=== PATIENT | male | born 1950 | race Caucasian/White ===

== ENCOUNTER 2018-02-26 06:23 | Inpatient (IN) | payer BC ==
[2018-02-22 11:29] LABS: Urine WBC None Seen /hpf (0 - 3)
[2018-02-22 11:39] LABS: Basophils # (auto) 0 uL; Basophils % (auto) 0.5 % (0.0-2.0); Eosinophils # (auto) 0.2 uL; Eosinophils % (auto) 2.6 % (0.0-7.0); Lymphocytes # (auto) 1.3 uL; Lymphocytes % (auto) 14.9 % (10.0-50.0); Mean Corpuscular Hemoglobin 31.9 pg (28.0-32.0); Mean Corpuscular Hgb Conc. 34.1 g/dL (32.0-36.0); Mean Corpuscular Volume 93.7 fL (80.0-100.0); Monocytes # (auto) 0.7 uL; Monocytes % (auto) 7.5 % (0.0-12.0); Neutrophils # (auto) 6.5 uL; Neutrophils % (auto) 74.5 % (37.0-80.0); Nucleated Red Blood Cells % 0.1 %; Platelet Count (auto) 290 10^3/uL (140-450); Red Cell Distribution Width 13.7 % (11.8-14.3); White Blood Cell 8.8 10^3/uL (4.4-10.8)
[2018-02-22 11:59] LABS: INR 0.93 (0.9-1.15); Partial Thromboplastin Time 27.2 sec (23.78-33.04)
[2018-02-22 12:08] LABS: Urine Bacteria NONE SEEN /hpf (None Seen); Urine Blood Negative /uL (Negative); Urine Specific Gravity 1.009 (1.001-1.035)
[2018-02-22 12:37] LABS: Potassium 4.5 mmol/L (3.5-5.1)
[2018-02-22 12:49] LABS: Albumin 3.8 g/dL (3.4-5.0); BUN/Creatinine Ratio 12.5; Bilirubin, Total 0.8 mg/dL (0.2-1.0); Calcium 8.9 mg/dL (8.5-10.1); Total Protein 7.3 g/dL (6.4-8.2)
[~2018-02-26] VITALS: Ht 188 cm; Wt 99.7 kg
[~2018-02-26 06:23] MED LIST: ALBUAER3 IN
[2018-02-26] MEDS ORDERED: ceFAZolin 1GM/50ML 100 ML IV ONE (06:34)
[2018-02-26] MEDS ORDERED: LIDOCAINE W/ EPINEPHRINE 2% INJ 20ML VIAL ONE (07:23)
[2018-02-26] MEDS ORDERED: BUPIVACAINE HCL 50 ML ONE (07:24)
[2018-02-26] MEDS ORDERED: MIDAZOLAM HCL 1MG/1ML-2 ML VIAL ONE ×4 (07:28→11:15)
[2018-02-26] MEDS ORDERED: TETRACAINE 1% INJ 2 ML VIAL IJ ONE (07:29)
[2018-02-26] MEDS ORDERED: MORPHINE SULF(PF) 0.5MG/ML 10ML VIAL ONE (07:30)
[2018-02-26] MEDS ORDERED: METOCLOPRAMIDE HCL 5MG/ml INJ 2ml VIAL ONE (07:58)
[2018-02-26] MEDS ORDERED: STERILE WATER 10 ML ONE ×3 (07:58→10:23)
[2018-02-26] MEDS ORDERED: ePHEDrine SULFATE 50 MG/ML AMP ONE ×3 (07:58→13:05)
[2018-02-26] MEDS ORDERED: diphenhdrAMINE HCL 50 MG/1 ML VL ONE (07:58)
[2018-02-26] MEDS ORDERED: LIDOCAINE 1% INJ PF 5ML AMP ONE ×2 (07:59→09:29)
[2018-02-26] MEDS ORDERED: PROPOFOL 10 MG/ML 20 ML IV ONE ×4 (07:59→10:21)
[2018-02-26] MEDS ORDERED: PHENYLEPHRINE HCL 10 MG/ML VL ONE (08:13)
[2018-02-26] MEDS ORDERED: NALOXONE HCL 0.4 MG/ML VIAL IV PRN ×2 (08:15)
[2018-02-26] MEDS ORDERED: KETOROLAC TROMETH 30 MG/ML 1ML VIAL IV PRN (08:15)
[2018-02-26] MEDS ORDERED: ONDANSETRON HCL 4 MG/2 ML VIAL IV ONE (08:15)
[2018-02-26] MEDS ORDERED: ONDANSETRON HCL 4 MG/2 ML VIAL IV PRN ×2 (08:15→12:15)
[2018-02-26] MEDS ORDERED: diphenhdrAMINE HCL 50 MG/1 ML VL IV PRN (08:15)
[2018-02-26] MEDS ORDERED: HYDROmorphone HCL 2 MG/ML VL IV PRN (08:15)
[2018-02-26] MEDS: LACTATED RINGER'S 1,000 ML IV SCH (12:01)
[2018-02-26] MEDS ORDERED: ACETAMINOPHEN 325 MG TAB PO PRN (12:15)
[2018-02-26] MEDS ORDERED: TEMAZEPAM 15 MG CAP PO PRN (12:15)
[2018-02-26] MEDS: ceFAZolin 1GM/50ML 50 ML IV SCH ×2 (12:15→20:18)
[2018-02-26] MEDS: ePHEDrine SULFATE 50 MG/ML AMP IV PRN ×5 (13:12→13:56)
[2018-02-26] MEDS: SODIUM CHLOR 0.9% PF (SALINE LOCK) 10ML VIAL/SYR IV SCH ×2 (14:00→21:33)
[2018-02-26 17:00] VITALS: BP 129/74
[2018-02-26] MEDS: DOCUSATE SOD 100 MG CAP PO SCH (21:33)
[2018-02-26] MEDS: oxyCODONE ER 10 MG TAB PO SCH (21:34)
[2018-02-26 22:00] VITALS: BP 105/70
[2018-02-27] MEDS: HYDROcodone-ACET 10/325MG TAB PO PRN ×2 (00:37→15:45)
[2018-02-27] MEDS: ceFAZolin 1GM/50ML 50 ML IV SCH ×2 (02:08→08:09)
[2018-02-27] MEDS: HYDROmorphone HCL 2 MG/ML VL IV PRN ×7 (02:25→20:44)
[2018-02-27] MEDS: SODIUM CHLOR 0.9% PF (SALINE LOCK) 10ML VIAL/SYR IV SCH ×3 (05:18→22:53)
[2018-02-27 05:30] VITALS: BP 101/58
[2018-02-27 06:20] LABS: Hematocrit 32.9 % (41.0-53.0); Hemoglobin 11.4 g/dL (13.5-17.5)
[2018-02-27] MEDS: LACTATED RINGER'S 1,000 ML IV SCH (08:39)
[2018-02-27 09:00] VITALS: BP 108/58
[2018-02-27] MEDS: DOCUSATE SOD 100 MG CAP PO SCH ×2 (10:08→22:53)
[2018-02-27] MEDS: ENOXAPARIN SOD 40 MG/0.4 ML SYRINGE SC SCH (10:09)
[2018-02-27] MEDS: oxyCODONE ER 10 MG TAB PO SCH ×2 (10:09→22:53)
[2018-02-27 13:00] VITALS: BP 127/71
[2018-02-27 17:00] VITALS: BP 126/70
[2018-02-27 22:00] VITALS: BP 111/58
[2018-02-28] MEDS: HYDROmorphone HCL 2 MG/ML VL IV PRN ×5 (00:19→21:00)
[2018-02-28] MEDS: LACTATED RINGER'S 1,000 ML IV SCH (04:01)
[2018-02-28] MEDS: SODIUM CHLOR 0.9% PF (SALINE LOCK) 10ML VIAL/SYR IV SCH ×3 (05:26→21:57)
[2018-02-28 05:53] LABS: Hematocrit 31.8 % (41.0-53.0); Hemoglobin 10.9 g/dL (13.5-17.5)
[2018-02-28 05:59] VITALS: BP 119/76
[2018-02-28 06:11] LABS: Calcium 8.1 mg/dL (8.5-10.1); Potassium 4.8 mmol/L (3.5-5.1)
[2018-02-28 07:28] VITALS: BP 124/64
[2018-02-28] MEDS: ENOXAPARIN SOD 40 MG/0.4 ML SYRINGE SC SCH (09:50)
[2018-02-28] MEDS: DOCUSATE SOD 100 MG CAP PO SCH ×2 (09:50→21:59)
[2018-02-28] MEDS: oxyCODONE ER 10 MG TAB PO SCH ×2 (09:51→21:59)
[2018-02-28 11:26] VITALS: BP 123/72
[2018-02-28 20:00] VITALS: BP 123/64
[2018-02-28 21:22] VITALS: BP 123/64
[2018-03-01] MEDS: LACTATED RINGER'S 1,000 ML IV SCH ×2 (00:01→20:16)
[2018-03-01 04:29] VITALS: BP 136/78
[2018-03-01 05:22] LABS: Hemoglobin 9.9 g/dL (13.5-17.5)
[2018-03-01] MEDS: SODIUM CHLOR 0.9% PF (SALINE LOCK) 10ML VIAL/SYR IV SCH ×3 (06:00→21:43)
[2018-03-01] MEDS: HYDROmorphone HCL 2 MG/ML VL IV PRN ×4 (06:30→20:36)
[2018-03-01 08:00] VITALS: BP 120/58
[2018-03-01] MEDS: ENOXAPARIN SOD 40 MG/0.4 ML SYRINGE SC SCH (10:18)
[2018-03-01] MEDS: DOCUSATE SOD 100 MG CAP PO SCH ×2 (10:18→21:43)
[2018-03-01] MEDS: oxyCODONE ER 10 MG TAB PO SCH ×2 (10:18→21:44)
[2018-03-01 12:00] VITALS: BP 137/67
[2018-03-01] MEDS ORDERED: HYDROcodone-ACET 10/325MG TAB PO PRN (12:15)
[2018-03-01 16:00] VITALS: BP 105/57
[2018-03-01 20:00] VITALS: BP 96/51
[2018-03-01 22:00] VITALS: BP 96/51
[2018-03-02] MEDS: HYDROmorphone HCL 2 MG/ML VL IV PRN ×6 (05:25→20:42)
[2018-03-02 05:38] VITALS: BP 100/58
[2018-03-02] MEDS: SODIUM CHLOR 0.9% PF (SALINE LOCK) 10ML VIAL/SYR IV SCH ×3 (06:17→21:27)
[2018-03-02 06:59] LABS: Hematocrit 26.6 % (41.0-53.0); Hemoglobin 9.2 g/dL (13.5-17.5)
[2018-03-02 09:00] VITALS: BP 124/62
[2018-03-02] MEDS: oxyCODONE ER 10 MG TAB PO SCH ×3 (10:48→21:27)
[2018-03-02] MEDS: DOCUSATE SOD 100 MG CAP PO SCH ×2 (10:48→21:27)
[2018-03-02] MEDS: ENOXAPARIN SOD 40 MG/0.4 ML SYRINGE SC SCH (10:49)
[2018-03-02 13:00] VITALS: BP 122/59
[2018-03-02] MEDS: ceFAZolin 1GM/50ML 50 ML IV SCH ×3 (13:03→21:27)
[2018-03-02] MEDS: LACTATED RINGER'S 1,000 ML IV SCH (16:01)
[2018-03-02 16:32] VITALS: BP 119/65
[2018-03-02 21:41] VITALS: BP 147/72
[2018-03-03] MEDS: HYDROmorphone HCL 2 MG/ML VL IV PRN ×6 (04:02→22:15)
[2018-03-03 05:00] VITALS: BP 118/64
[2018-03-03 05:00] LABS: Basophils # (auto) 0.1 uL; Basophils % (auto) 0.6 % (0.0-2.0); Eosinophils # (auto) 0.3 uL; Eosinophils % (auto) 3.7 % (0.0-7.0); Hematocrit 25.9 % (41.0-53.0); Hemoglobin 9.1 g/dL (13.5-17.5); Lymphocytes % (auto) 11.6 % (10.0-50.0); Mean Corpuscular Hemoglobin 32.4 pg (28.0-32.0); Mean Corpuscular Hgb Conc. 35.1 g/dL (32.0-36.0); Mean Corpuscular Volume 92.2 fL (80.0-100.0); Neutrophils % (auto) 72.1 % (37.0-80.0); Platelet Count (auto) 318 10^3/uL (140-450); Red Blood Cells 2.81 10^6/uL (4.5-5.90); Red Cell Distribution Width 12.8 % (11.8-14.3); White Blood Cell 8.4 10^3/uL (4.4-10.8)
[2018-03-03] MEDS: ceFAZolin 1GM/50ML 50 ML IV SCH ×3 (06:15→22:14)
[2018-03-03] MEDS: SODIUM CHLOR 0.9% PF (SALINE LOCK) 10ML VIAL/SYR IV SCH ×3 (06:15→22:14)
[2018-03-03 09:00] VITALS: BP 115/61
[2018-03-03] MEDS: oxyCODONE ER 10 MG TAB PO SCH ×2 (10:02→23:12)
[2018-03-03] MEDS: DOCUSATE SOD 100 MG CAP PO SCH ×2 (10:02→22:14)
[2018-03-03] MEDS: ENOXAPARIN SOD 40 MG/0.4 ML SYRINGE SC SCH (10:03)
[2018-03-03] MEDS: LACTATED RINGER'S 1,000 ML IV SCH (12:01)
[2018-03-03 13:00] VITALS: BP 133/65
[2018-03-03 17:00] VITALS: BP 120/64
[2018-03-03 20:00] VITALS: BP 115/80
[2018-03-03 22:00] VITALS: BP 115/80
[2018-03-04 04:58] VITALS: BP 114/55
[2018-03-04] MEDS: ceFAZolin 1GM/50ML 50 ML IV SCH ×3 (05:26→22:21)
[2018-03-04] MEDS: SODIUM CHLOR 0.9% PF (SALINE LOCK) 10ML VIAL/SYR IV SCH ×3 (05:27→22:21)
[2018-03-04] MEDS: HYDROmorphone HCL 2 MG/ML VL IV PRN ×3 (05:38→11:45)
[2018-03-04 05:48] LABS: Basophils # (auto) 0.1 uL; Basophils % (auto) 0.6 % (0.0-2.0); Eosinophils # (auto) 0.4 uL; Eosinophils % (auto) 4.4 % (0.0-7.0); Hematocrit 25.7 % (41.0-53.0); Hemoglobin 8.9 g/dL (13.5-17.5); Lymphocytes # (auto) 0.9 uL; Lymphocytes % (auto) 10.5 % (10.0-50.0); Mean Corpuscular Hemoglobin 31.7 pg (28.0-32.0); Mean Corpuscular Hgb Conc. 34.6 g/dL (32.0-36.0); Mean Corpuscular Volume 91.5 fL (80.0-100.0); Monocytes % (auto) 11.8 % (0.0-12.0); Neutrophils # (auto) 6.2 uL; Neutrophils % (auto) 72.7 % (37.0-80.0); Platelet Count (auto) 345 10^3/uL (140-450); Red Blood Cells 2.81 10^6/uL (4.5-5.90); Red Cell Distribution Width 12.8 % (11.8-14.3); White Blood Cell 8.6 10^3/uL (4.4-10.8)
[2018-03-04 09:00] VITALS: BP 109/59
[2018-03-04] MEDS: oxyCODONE ER 10 MG TAB PO SCH ×2 (10:05→22:22)
[2018-03-04] MEDS: DOCUSATE SOD 100 MG CAP PO SCH ×2 (10:05→22:22)
[2018-03-04] MEDS: ENOXAPARIN SOD 40 MG/0.4 ML SYRINGE SC SCH (10:08)
[2018-03-04 13:00] VITALS: BP 102/55
[2018-03-04] MEDS ORDERED: HYDROmorphone HCL 2 MG/ML VL IV PRN (13:00)
[2018-03-04] MEDS ORDERED: HYDROcodone-ACET 10/325MG TAB PO PRN (13:00)
[2018-03-04 17:00] VITALS: BP 106/62
[2018-03-04 21:45] VITALS: BP 123/67
[2018-03-05] MEDS: LACTATED RINGER'S 1,000 ML IV SCH ×2 (04:01→23:30)
[2018-03-05 05:03] VITALS: BP 123/60
[2018-03-05] MEDS: SODIUM CHLOR 0.9% PF (SALINE LOCK) 10ML VIAL/SYR IV SCH ×3 (05:28→21:23)
[2018-03-05] MEDS: ceFAZolin 1GM/50ML 50 ML IV SCH ×3 (05:28→21:23)
[2018-03-05 05:36] LABS: Hematocrit 26.8 % (41.0-53.0); Hemoglobin 9.5 g/dL (13.5-17.5)
[2018-03-05 05:45] LABS: Potassium 4.1 mmol/L (3.5-5.1)
[2018-03-05 05:47] LABS: BUN/Creatinine Ratio 19.7
[2018-03-05 08:40] VITALS: BP 127/69
[2018-03-05] MEDS: DOCUSATE SOD 100 MG CAP PO SCH ×2 (09:44→21:23)
[2018-03-05] MEDS: ENOXAPARIN SOD 40 MG/0.4 ML SYRINGE SC SCH (09:45)
[2018-03-05] MEDS: oxyCODONE ER 10 MG TAB PO SCH ×2 (09:45→21:23)
[2018-03-05] MEDS ORDERED: LEVO500T21 PO (10:57)
[2018-03-05] MEDS ORDERED: RIVA10TA PO (10:57)
[2018-03-05 12:32] VITALS: BP 123/67
[2018-03-05 17:15] VITALS: BP 121/68
[2018-03-05 22:00] VITALS: BP 128/70
[2018-03-06 05:00] VITALS: BP 133/71
[2018-03-06] MEDS: SODIUM CHLOR 0.9% PF (SALINE LOCK) 10ML VIAL/SYR IV SCH ×2 (06:04→13:55)
[2018-03-06] MEDS: ceFAZolin 1GM/50ML 50 ML IV SCH ×2 (06:05→13:55)
[2018-03-06 08:39] VITALS: BP 134/72
[2018-03-06] MEDS: oxyCODONE ER 10 MG TAB PO SCH (10:00)
[2018-03-06] MEDS: ENOXAPARIN SOD 40 MG/0.4 ML SYRINGE SC SCH (10:01)
[2018-03-06] MEDS: DOCUSATE SOD 100 MG CAP PO SCH (10:01)
[2018-03-06 10:40] VITALS: BP 125/76
[2018-03-06 11:50] VITALS: BP 121/67
[2018-03-06 12:34] VITALS: BP 121/67
== END 2018-03-06 16:15 | disposition home or self-care (01) | DRG 470 ==
LOC: SUR 06:23 → WEST WING 06:24
PROVIDERS: ADMIT Orthopaedic Surgery; ATTEND Internal Medicine
PROC: 0MBN0ZZ Excision of Right Knee Bursa and Ligament, Open Approach (ICD-10-PCS; 2018-02-26)
PROC: 0KNQ0ZZ Release Right Upper Leg Muscle, Open Approach (ICD-10-PCS; 2018-02-26)
PROC: 0SRC0J9 Replacement of Right Knee Joint with Synthetic Substitute, Cemented, Open Approach (ICD-10-PCS; principal; 2018-02-26 07:29)
DX: M17.11 Unilateral primary osteoarthritis, right knee (principal); M70.41 Prepatellar bursitis, right knee; M21.061 Valgus deformity, not elsewhere classified, right knee; J44.9 Chronic obstructive pulmonary disease, unspecified; M24.561 Contracture, right knee; G47.33 Obstructive sleep apnea (adult) (pediatric); Z82.5 Family history of asthma and other chronic lower respiratory diseases; Z84.89 Family history of other specified conditions; Y93.89 Activity, other specified
CPT/HCPCS: 36415; 73562; 80048; 80053; 81001; 85014; 85018; 85025; 85610; 85730; 86850; 86900; 86901; 87040; 93971; 97110; 97116; 97163; 97530; G0378; J0690; J2250; J2704; J3490

== ENCOUNTER 2018-05-08 15:14 | Inpatient (IN) | payer BC ==
[~2018-05-08] VITALS: Ht 188 cm; Wt 89.9 kg
[~2018-05-08 15:14] MED LIST changes: +LEVO500T21 PO; +RIVA10TA PO
[2018-05-08] MEDS ORDERED: SODIUM CHLORIDE 0.9% 1,000 ML IV ONE (17:03)
[2018-05-08 17:07] LABS: Basophils # (auto) 0 uL; Basophils % (auto) 0.4 % (0.0-2.0); Eosinophils # (auto) 0.1 uL; Eosinophils % (auto) 0.9 % (0.0-7.0); Hematocrit 41.4 % (41.0-53.0); Hemoglobin 13.8 g/dL (13.5-17.5); Lymphocytes # (auto) 0.9 uL; Mean Corpuscular Hemoglobin 29.9 pg (28.0-32.0); Mean Corpuscular Hgb Conc. 33.2 g/dL (32.0-36.0); Monocytes # (auto) 0.6 uL; Monocytes % (auto) 7.2 % (0.0-12.0); Neutrophils # (auto) 7.2 uL; Neutrophils % (auto) 81.5 % (37.0-80.0); Platelet Count (auto) 272 10^3/uL (140-450); Red Blood Cells 4.61 10^6/uL (4.5-5.90); Red Cell Distribution Width 14.5 % (11.8-14.3); White Blood Cell 8.8 10^3/uL (4.4-10.8)
[2018-05-08 17:21] LABS: Albumin 3.5 g/dL (3.4-5.0); Anion Gap 7 (5-15); Blood Urea Nitrogen 11 mg/dL (7-18); Calcium 8.3 mg/dL (8.5-10.1); Carbon Dioxide 23 mmol/L (21-32); Chloride 110 mmol/L (98-107); Glucose 91 mg/dL (74-106); Potassium 4.4 mmol/L (3.5-5.1); Sodium 140 mmol/L (136-145)
[2018-05-08 17:34] LABS: Alanine Aminotransferase 15 U/L (16-61); Alkaline Phosphatase 71 U/L (45-117); Aspartate Aminotransferase 11 U/L (15-37); BUN/Creatinine Ratio 12.6; Bilirubin, Total 0.5 mg/dL (0.2-1.0); GFR African American > 60 mL/min; GFR Non-African American > 60 mL/min; Magnesium 2.2 mg/dL (1.6-2.6); Total Protein 6.3 g/dL (6.4-8.2)
[2018-05-08 17:36] LABS: INR 0.93 (0.9-1.15); Partial Thromboplastin Time 25.5 sec (23.78-33.04)
[2018-05-08] MEDS ORDERED: cefTRIAXone 1GM/50ML D5W 50 ML IV ONE (18:00)
[2018-05-08] MEDS ORDERED: NITROGLYCERIN 0.4 MG SL TAB SL PRN (18:45)
[2018-05-08] MEDS ORDERED: ACETAMINOPHEN 500 MG TAB PO PRN (18:45)
[2018-05-08] MEDS ORDERED: MORPHINE SULFATE 4 MG/ML SYR/VIAL IV PRN (18:45)
[2018-05-08] MEDS ORDERED: PROMETHAZINE HCL 25 MG/ML 1ML IV PRN (18:45)
[2018-05-08] MEDS ORDERED: LORazepam 0.5 MG TAB PO PRN (18:45)
[2018-05-08] MEDS ORDERED: TEMAZEPAM 15 MG CAP PO PRN (18:45)
[2018-05-08] MEDS: SODIUM CHLORIDE 0.9% 1,000 ML IV SCH (19:00)
[2018-05-08 21:10] VITALS: BP 140/79
--- NOTE | 2018-05-08 21:10 | NUR ---
TELE ADMIT FROM ER RECEIVED PATIENT VIA GURNEY TO ROOM 217A. PATIENT IS A/O X4, AT BEDSIDE. NO S/S OF DISTRESS OR SOB. PATIENT DENIES PAIN AT THIS TIME. STATES "IT ONLY HURTS WHEN I MOVE IT. RIGHT NOW ITS FINE SINCE I AM NOT MOVING IT". RIGHT KNEE IS HOT TO TOUCH AND EDEMATOUS. PATIENT SKIN IS INTACT. PATIENT HAS IMMOBILIZER ON RIGHT LEG. INFORMED PATIENT IS NPO AFTER MIDNIGHT, ORDERS PENDING FOR POSSIBLE SURGICAL PROCEDURE OF RIGHT KNEE, AND UPDATED PATIENT ON POC, VERBALIZED UNDERSTANDING. BED LOCKED IN LOW POSITION, CALL LIGHT WITHIN REACH, WILL CONTINUE TO MONITOR PATIENT Q1HR AND PRN.
[2018-05-08 22:45] VITALS: BP 140/79
--- NOTE | 2018-05-08 22:50 | NUR ---
IV REMOVAL/INSERTION REMOVED 22G FROM R HAND, CATHETER INTACT, PATIENT TOLERATED WELL. INSERTED 20G TO R FOREARM AFTER 1 ATTEMPT. PATIENT TOLERATED WELL.
[2018-05-09] VITALS (7 sets, daily range): BP systolic 128–154; BP diastolic 74–97
[2018-05-09] MEDS: SODIUM CHLORIDE 0.9% 1,000 ML IV SCH ×2 (05:46→14:32)
--- NOTE | 2018-05-09 07:00 | NUR ---
Opening Shift Note Assumed care of patient, awake and alert. No S/S of distress/SOB or pain. Instructed on POC and to call for assist PRN, will continue to monitor for changes Q1hr and PRN.
--- NOTE | 2018-05-09 09:28 | NUR ---
[facility] NOTIFIED THAT THE PATIENT REFUSES TO GO DOWN STAIRS UNTIL HIS COMES TO THE BEDSIDE. I TOLD WILLA THAT THE PATIENT'S IS COMING FROM [place] AND WONT BE HERE UNTIL ABOUT 11AM
[2018-05-09] MEDS: PANTOPRAZOLE 40 MG TAB PO SCH (10:00)
--- NOTE | 2018-05-09 10:38 | NUR ---
[facility] CALLED AND I NOTIFIED THEM THAT THE PATIENT'S IS STILL NOT HERE AT BEDSIDE. I WAS INSTRUCTED TO CALL [facility] ONCE THE GETS THERE. I WILL NOTIFY THEM WHEN SHE ARRIVES.
--- NOTE | 2018-05-09 11:05 | NUR ---
ARRIVED. [facility] NOTIFIED.
--- NOTE | 2018-05-09 13:06 | NUR ---
PATIENT OFF FLOOR TO OR FOR PROCEDURE. PATIENT IS STABLE FOR TRANSFER AND VS ARE WNL. REPORT GIVEN TO WILLA.
[2018-05-09] MEDS ORDERED: ceFAZolin 1GM/50ML 50 ML IV ONE (13:19)
[2018-05-09] MEDS ORDERED: SUCCINYLCHOLINE CHLORIDE 20 MG/ML 10ML VIAL IV ONE (13:33)
[2018-05-09] MEDS ORDERED: LIDOCAINE 1% INJ PF 5ML AMP ONE (13:33)
[2018-05-09] MEDS ORDERED: MIDAZOLAM HCL 1MG/1ML-2 ML VIAL ONE (13:42)
[2018-05-09] MEDS ORDERED: METOCLOPRAMIDE HCL 5MG/ml INJ 2ml VIAL ONE (13:42)
[2018-05-09] MEDS ORDERED: PROPOFOL 10 MG/ML 20 ML IV ONE (13:44)
[2018-05-09] MEDS ORDERED: ROCURONIUM 10MG/ML 10ML VIAL IV ONE (13:56)
[2018-05-09] MEDS ORDERED: fentaNYL CITRATE 100 MCG/2 ML VL ONE (13:56)
[2018-05-09] MEDS ORDERED: SODIUM CHLORIDE LOCK 10 ML ONE (14:14)
[2018-05-09] MEDS ORDERED: ePHEDrine SULFATE 50 MG/ML AMP ONE (14:14)
[2018-05-09] MEDS ORDERED: HYDROmorphone HCL 2 MG/ML VL IV PRN (14:15)
[2018-05-09] MEDS ORDERED: ONDANSETRON HCL 4 MG/2 ML VIAL IV ONE (14:15)
[2018-05-09] MEDS ORDERED: NALOXONE HCL 0.4 MG/ML VIAL IV PRN (14:15)
[2018-05-09] MEDS ORDERED: KETOROLAC TROMETH 30 MG/ML 1ML VIAL ONE (15:01)
[2018-05-09] MEDS: HYDROmorphone HCL 2 MG/ML VL IV PRN ×2 (15:52→16:02)
--- NOTE | 2018-05-09 16:20 | NUR ---
REPORT RECEIVED FROM RECOVERY. THE PROCEDURE WENT WELL. NO COMPLICATIONS NOTED AND VS ARE WNL. PATIENT WILL RETURN TO ROOM SOON.
--- NOTE | 2018-05-09 16:40 | NUR ---
PATIENT BACK TO ROOM. PAIN REPORTED 8/10 TO THE RIGHT KNEE. PAIN MANAGEMENT OPTIONS DISCUSSED WITH THE PATIENT. RIGHT LEG IS IN BRACE. RIGHT FOOT CMST IS INTACT.
[2018-05-09] MEDS: MORPHINE SULFATE 4 MG/ML SYR/VIAL IV PRN ×2 (17:05→22:10)
[2018-05-09] MEDS: HYDROcodone-ACET 5/325MG TAB PO PRN (18:52)
[2018-05-09] MEDS ORDERED: ALBUTEROL SULF 2.5 MG/0.5ML(0.5%) NEB SOLN NEB PRN (19:30)
--- NOTE | 2018-05-09 19:45 | NUR ---
OPENING SHIFT NOTE RECEIVED REPORT FROM DAYSHIFT RN. PATIENT RESTING COMFORTABLY IN BED WITH AT BEDSIDE. NO S/S OF DISTRESS OR SOB. PATIENT STATES HE FEELS GOOD WITH NO PAIN AT THIS TIME. KNEE IS IN BRACE, PATIENT TOLERATING WELL. PT UPDATED ON POC, VERBALIZED UNDERSTANDING. BED LOCKED IN LOW POSITION, CALL LIGHT WITHIN REACH. WILL CONTINUE TO MONITOR PT Q1HR AND PRN.
[2018-05-09] MEDS: ceFAZolin 1GM/50ML 50 ML IV SCH (21:31)
[2018-05-10] MEDS: SODIUM CHLORIDE 0.9% 1,000 ML IV SCH (02:25)
--- NOTE | 2018-05-10 02:32 | NUR ---
Respiratory note: AT BEDSIDE TO ASSESS PT FOR PRN TX. PT ON RA POX 97%, HR 88, BS ARE CLEAR T/O, TX NOT INDICATED AT THIS TIME, PT AWARE HE CAN HAVE ME PAGED AT ANY TIME HE EXPERIENCES ANY DIFFICULTY BREATHING.
[2018-05-10 05:49] VITALS: BP 155/83
[2018-05-10] MEDS: ceFAZolin 1GM/50ML 50 ML IV SCH ×3 (06:13→21:37)
[2018-05-10] MEDS: HYDROcodone-ACET 5/325MG TAB PO PRN ×3 (06:20→18:40)
[2018-05-10 06:34] LABS: Basophils # (auto) 0 uL; Basophils % (auto) 0.4 % (0.0-2.0); Eosinophils # (auto) 0.2 uL; Eosinophils % (auto) 1.9 % (0.0-7.0); Hematocrit 37.2 % (41.0-53.0); Hemoglobin 12.7 g/dL (13.5-17.5); Lymphocytes % (auto) 11.4 % (10.0-50.0); Mean Corpuscular Hemoglobin 30.6 pg (28.0-32.0); Mean Corpuscular Hgb Conc. 34.1 g/dL (32.0-36.0); Mean Corpuscular Volume 89.8 fL (80.0-100.0); Monocytes # (auto) 0.7 uL; Monocytes % (auto) 7.9 % (0.0-12.0); Neutrophils # (auto) 6.8 uL; Neutrophils % (auto) 78.4 % (37.0-80.0); Platelet Count (auto) 231 10^3/uL (140-450); Red Blood Cells 4.15 10^6/uL (4.5-5.90); Red Cell Distribution Width 14.2 % (11.8-14.3); White Blood Cell 8.7 10^3/uL (4.4-10.8)
[2018-05-10 06:45] LABS: Chloride 110 mmol/L (98-107); Glucose 91 mg/dL (74-106); Potassium 4.1 mmol/L (3.5-5.1); Sodium 139 mmol/L (136-145)
[2018-05-10 06:54] LABS: Anion Gap 7 (5-15); BUN/Creatinine Ratio 12.7; Blood Urea Nitrogen 9 mg/dL (7-18); Carbon Dioxide 22 mmol/L (21-32); GFR African American > 60 mL/min; GFR Non-African American > 60 mL/min
--- NOTE | 2018-05-10 07:30 | NUR ---
Opening Shift Note Assumed care of patient, awake and alert. No S/S of distress/SOB. Pain reported to right knee. Pain management options discussed with patient. Instructed on POC and to call for assist PRN, will continue to monitor for changes Q1hr and PRN.
[2018-05-10 08:00] VITALS: BP 137/71
[2018-05-10 09:29] VITALS: BP 137/71
--- NOTE | 2018-05-10 10:00 | NUR ---
PHYSICAL THERAPY WALKING WITH PATIENT.
[2018-05-10] MEDS: PANTOPRAZOLE 40 MG TAB PO SCH (10:30)
--- NOTE | 2018-05-10 11:51 | NUR ---
DR. CORDOVA CALLED PRE-OP AND SPOKE WITH YAHIR TO SEE IF DR. CORDOVA WAS DOWN THERE. HE WAS CURRENTLY IN SURGERY. I PASSED ON THE MESSAGE THAT DR. PATINO WANTED TO KNOW IF DR. CORDOVA WAS PLANNING ON PLACING A BRACE TO THE PATIENT'S RIGHT KNEE. I WAS TOLD THAT SHE WOULD ASK DR. CORDOVA WHEN HE GETS OUT OF SURGERY AND WILL CALL ME BACK.
--- NOTE | 2018-05-10 12:08 | NUR ---
patient reports feeling a sore spot to the buttock after using the restroom. upon assessing the skin is found to be broken down. will initiate wound protocols.
--- NOTE | 2018-05-10 12:15 | NUR ---
WOUND CARE NOTE: IN TO SEE PATIENT AT THIS TIME FOR WOUND TO SACRUM/BUTTOCKS. PATIENT ADMITTED TO [facility] WITH DIAGNOSIS OF RIGHT PATELLA FRACTURE. HE HAS CURRENT MORAIMA SCORE OF 18. PATIENT IS AMBULATORY WITH ASSISTANCE BY STAFF POST-OPERATIVELY. BEDSIDE NURSE HAS PHOTOGRAPHED WOUND FOR REFERENCE. PATIENT NOTED PAIN AND BLEEDING UPON WIPING AFTER USING THE BATHROOM. BEDSIDE NURSE NOTED TWO SMALL OPEN SKIN TEARS X 2. WOUNDS ARE PARTIAL THICKNESS. WOUNDS APPEAR SKIN TEARS. BEDSIDE NURSE APPLIED ZGUARD AND OPTIFOAM GENTLE DRESSING TO WOUND. PATIENT EDUCATED IN WOUND CARE. PATIENT VERBALIZED UNDERSTANDING. RECOMMEND: BID/PRN APPLICATION WITH ZGUARD, OPTIFOAM GENTLE DRESSING TO OPEN SACRAL SKIN TEARS, DIETARY CONSULT, CONTINUED MONITORING BY WOUND CARE TEAM. Addendum: 05/10/18 at 1842 by Marissa Negro RN Amended: Links added.
--- NOTE | 2018-05-10 12:30 | NUR ---
wound care rounded on patient and inspected the wound. obtained dressing instructions from Rachel mosquera wound care nurse. pictures of wound taken and dressing applied.
[2018-05-10 13:00] VITALS: BP 156/85
[2018-05-10 17:00] VITALS: BP 140/84
--- NOTE | 2018-05-10 18:34 | NUR ---
assessment Patient is a 67 year old male who is alert and oriented. Patients cognitive abilities are intact. Prior to admission patient lived home with family and functioned independently. Patient informed me he is able to care for his own ADLs. Per patient he will return home to his prior living arrangements post discharge and family will transport him home. Patient informed me he has a cane and fww for home use. Patient informed me Dr Easton did a total knee replacement on 02/26/18. Patient informed me he was doing physical therapy and during his session his patella fractured on 05/07/18. Patient has been up with PT. Patients post discharge needs to be determined prior to discharge. I informed patient he has a right to speak to a marriage and family social worker regarding all care. I informed patient he has a right to participate in any and all discharge planning. Patient is aware of visiting hours on the hospital floor. I informed patient he has a right to privacy. Patient does not have a POA and advanced directive. I have offered patient information on POA and advanced directives. I informed the patient the advantages and benefits of having an Advanced Directive. Patient verbalized understanding and agreed to discharge plan. Addendum: 05/10/18 at 1837 by Carli MILLIGAN Amended: Links added.
[2018-05-10 22:00] VITALS: BP 118/61
[2018-05-11] MEDS: ceFAZolin 1GM/50ML 50 ML IV SCH ×2 (05:03→13:04)
[2018-05-11 05:50] VITALS: BP 118/66
[2018-05-11 05:52] LABS: Hematocrit 36.5 % (41.0-53.0); Hemoglobin 12.8 g/dL (13.5-17.5)
--- NOTE | 2018-05-11 07:32 | NUR ---
OPENING SHIFT PATIENT IS RESTING IN BED. NO S/S OF DISTRESS, SOB, OR PAIN. RESPIRATIONS ARE EVEN AND UNLABORED. BED IS IN LOWEST LOCKED POSITION, SIDE RAILS UPX 2, AND CALL LIGHT WITHIN REACH. DISCUSS POC WITH PATIENT, PATIENT VERBALIZED UNDERSTANDING. WILL CONTINUE TO MONITOR Q1 HOUR AND PRN.
--- NOTE | 2018-05-11 07:49 | NUR ---
PT. ASSESSED FOR PRN. MN. TX. , NO RESP. DISTRESS OR SOB NOTED AT THIS TIME. BS. CLEAR,HR=88,RR=18,SP02=95% ON RA. PRN. TX. NOT INDICATE OR WANTED AT THIS TIME, PER PT... INSTRUCTED PT. TO CALL IF HE NEEDS ONE. Addendum: 05/11/18 at 0916 by Zahida Mora RT Amended: Links added.
[2018-05-11 09:00] VITALS: BP 138/68
[2018-05-11] MEDS: PANTOPRAZOLE 40 MG TAB PO SCH (10:00)
--- NOTE | 2018-05-11 13:02 | NUR ---
IV insertion IV access obtained, via clean sterile technique by inserting 22 gauge catheter at LFA after 1 attempt. IV secured properly. No trauma to site. Patient tolerated well.
[2018-05-11 13:10] VITALS: BP 115/67
--- NOTE | 2018-05-11 14:10 | NUR ---
PATIENT AMBULATED WITH PT PATIENT TOLERATED WELL. NO S/S OF DISTRESS, SOB, OR PAIN
[2018-05-11 14:33] VITALS: BP 138/68
--- NOTE | 2018-05-11 15:35 | NUR ---
DISCHARGE Discharge instructions given as ordered. Encouraged to follow up Carli Phillips to choose a primary care provider. Instructed to call and make an appointment with Dr. Easton for a one week follow up, Sunday morning when the office opens. All questions and concerns addressed. Patient verbalized understanding. IV(s) removed with catheters intact, pressure dressings applied. Patient taken to vehicle via wheelchair with all personal belongings, accompanied by staff and family member. No distress noted at time of departure.
== END 2018-05-11 15:45 | disposition home or self-care (01) | DRG 517 ==
LOC: ER 15:16 → OVERFLOW 18:35 → TELE-CENTR 20:59 → CENTRAL 05-10 00:45
PROVIDERS: ADMIT Internal Medicine; ATTEND Internal Medicine
PROC: 0QSD04Z Reposition Right Patella with Internal Fixation Device, Open Approach (ICD-10-PCS; principal; 2018-05-09 13:34)
DX: S82.001A Unspecified fracture of right patella, initial encounter for closed fracture (principal); X58.XXXA Exposure to other specified factors, initial encounter; Z96.642 Presence of left artificial hip joint; Z96.651 Presence of right artificial knee joint; M19.90 Unspecified osteoarthritis, unspecified site; G47.33 Obstructive sleep apnea (adult) (pediatric); J44.9 Chronic obstructive pulmonary disease, unspecified; Y93.89 Activity, other specified; Y92.89 Other specified places as the place of occurrence of the external cause; Z80.0 Family history of malignant neoplasm of digestive organs; Z83.3 Family history of diabetes mellitus; Z87.891 Personal history of nicotine dependence
CPT/HCPCS: 36415; 71045; 80048; 80053; 83735; 84443; 85014; 85018; 85025; 85610; 85730; 93005; 96361; 96365; 97163; G0378; J0330; J0690; J0696; J1885; J2250; J2704